=== PATIENT | male | born 1985 | race Hispanic/Latino ===

== ENCOUNTER 2024-12-13 14:02 | Emergency (ER) | payer BC ==
[~2024-12-13] VITALS: Ht 182.9 cm; Wt 88.5 kg
[2024-12-13 15:07] LABS: BASOPHILS # (AUTO) 0.05 K/uL (0.00-0.20); BASOPHILS % (AUTO) 0.5 % (0.0-5.0); EOSINOPHILS # (AUTO) 0.07 K/uL (0.00-0.70); EOSINOPHILS % (AUTO) 0.7 % (0.0-8.0); HEMATOCRIT 46.8 % (42-54); IMMATURE GRANULOCYTE ABSOLUTE 0.03 K/uL (0-1); LYMPHOCYTES # (AUTO) 1.3 K/uL (1.0-4.8); LYMPHOCYTES % (AUTO) 12.1 % (21.0-51.0); MEAN CORPUSCULAR HEMOGLOBIN 30.6 pg (27.0-33.0); MEAN CORPUSCULAR HGB CONC 35.3 g/dL (32.0-36.0); MEAN CORPUSCULAR VOLUME 86.7 fL (79-99); MONOCYTES # (AUTO) 0.6 K/uL (0.1-1.0); MONOCYTES % (AUTO) 5.9 % (3.0-13.0); NEUTROPHILS # (AUTO) 8.4 K/uL (1.8-7.7); NEUTROPHILS % (AUTO) 80.5 % (40.0-77.0); PLATELET COUNT (AUTO) 236 K/uL (130-400); RED CELL DISTRIBUTION WIDTH 12.1 % (11.0-15.5); WHITE BLOOD COUNT (AUTO) 10.4 K/uL (4.8-10.8)
[2024-12-13] MEDS: 0.9%NACL 1000ML 1,000 ML IV ONE (15:09)
--- NOTE | 2024-12-13 15:35 | ERN ---
General Chief Complaint: Medical Clearance Stated Complaint: MEDICAL CLEARANCE Time Seen by MD: 14:03 Time Seen by Midlevel: 14:03 Source: patient History of Present Illness Initial Comments Patient is a 39-year-old male being brought in by [facility] for medical clearance. The patient was arrested earlier today. He then reported he was diabetic so they brought him in for medical clearance. Patient was previously taking metformin but has not taking his medication over the last 4-6 months. On arrival with the patient denies any complaints. He specifically denies any chest pain, shortness of breath, nausea, and vomiting. Allergies: Coded Allergies: ibuprofen (Unverified Allergy, Unknown, 12/13/24) Past Medical History Past Medical History: Diabetes-Type II Past Surgical History: Other Surgical History Other: R FOOT ROS Dictation CONSTITUTIONAL: Negative except for HPI HEAD/FACE: Negative except for HPI EENT: Negative except for HPI RESPIRATORY: Negative except for HPI GASTROINTESTINAL/ABDOMINAL: Negative except for HPI GENITOURINARY: Negative except for HPI MUSCULOSKELETAL: Negative except for HPI INTEGUMENTARY: Negative except for HPI NEUROLOGICAL/PSYCH: Negative except for HPI HEMATOLOGIC/LYMPHATIC: Negative except for HPI All Systems Negative, Except as noted above. 13 point review of systems assessed and all negative except for above. Physical Exam Physical Exam Dictation Vital Signs reviewed General Appearance: Alert, oriented x 3, no acute distress, well developed, nourished. Head and Face: non-traumatic. Eyes: PERRL, pink conjunctivas, eyelid no trauma, anterior chamber with arcus senilis. Ears: Pinnas intact and no signs of trauma or erythema ear canals clear and no discharge TM no erythema Nose: No discharge, no bleeding. Oropharynx: Mouth normal, tongue pink, pharynx clear,no erythema, tonsils no exudates, no abscesses noted, mucous membrane moist Neck: Supple, non-tender, no thyromegaly, no masses, no JVD, no bruits Breast:Deferred Chest:No tenderness, no crepitus, no paradoxical movement, no retractions Lungs:Clear, well-ventilated, symmetric, no rales, no wheezing, no rhonchi, no stridor, good breath sounds bilaterally Heart: Regular rate, regular rhythm, no murmur, no gallops Vascular: no peripheral edema, Abdomen: Soft, positive bowel sounds, nondistended, no guarding, nontender, no rebound, no masses no hepatomegaly, no splenomegaly, no Friedman's sign, no hernias. Rectal: Deferred Genital: Deferred Neurological: Normal speech, motor function intact, sensory function intact Musculoskeletal: Neck nontender, full range of motion, back nontender, full range of motion, Extremities: nontender, full range of motion Skin: Color pink, dry, no turgor, no rash, no lacerations, no abrasions, no contusions. Lymphatic: Deferred Results Laboratory and Microbiology Lab and Micro Result Laboratory Tests Test 12/13/24 14:58 White Blood Count 10.4 K/uL (4.8-10.8) Red Blood Count 5.40 MIL/uL (4.50-6.20) Hemoglobin 16.5 g/dL (14.0-18.0) Hematocrit 46.8 % (42-54) Mean Corpuscular Volume 86.7 fL (79-99) Mean Corpuscular Hemoglobin 30.6 pg (27.0-33.0) Mean Corpuscular Hemoglobin Concent 35.3 g/dL (32.0-36.0) Red Cell Distribution Width 12.1 % (11.0-15.5) Platelet Count 236 K/uL (130-400) Mean Platelet Volume 10.8 fL (7.5-10.5) H Immature Granulocyte % (Auto) 0.3 % (0-1) Neutrophils (%) (Auto) 80.5 % (40.0-77.0) H Lymphocytes (%) (Auto) 12.1 % (21.0-51.0) L Monocytes (%) (Auto) 5.9 % (3.0-13.0) Eosinophils (%) (Auto) 0.7 % (0.0-8.0) Basophils (%) (Auto) 0.5 % (0.0-5.0) Neutrophils # (Auto) 8.4 K/uL (1.8-7.7) H Lymphocytes # (Auto) 1.3 K/uL (1.0-4.8) Monocytes # (Auto) 0.6 K/uL (0.1-1.0) Eosinophils # (Auto) 0.07 K/uL (0.00-0.70) Basophils # (Auto) 0.05 K/uL (0.00-0.20) Absolute Immature Granulocyte (auto 0.03 K/uL (0-1) Nucleated Red Blood Cells 0.0 % (0.0-0.19) Sodium Level 136 mmol/L (136-145) Potassium Level 4.0 mmol/L (3.5-5.1) Chloride Level 100 mmol/L (101-111) L Carbon Dioxide Level 32 mmol/L (21-32) Blood Urea Nitrogen 8 mg/dL (7-18) Creatinine 1.0 mg/dL (0.5-1.3) Glomerular Filtration Rate Calc 98 mL/min (>90) Random Glucose 299 mg/dL (70-105) H Whole Blood Ketones Quantitative 0.3 mmol/L (0.0-0.6) Total Calcium 9.2 mg/dL (8.5-10.1) Labs Reviewed?: Yes MDM MDM: 39-year-old male with a past medical history of type 2 diabetes not currently on medication presenting to the ER for medical clearance. Patient reported he was diabetic so they brought him in for clearance. Patient was no complaints. Physical examination is unremarkable. Basic labs obtained including ketones to evaluate for DKA however a CBC and chemistries are stable. His sugars elevated to 99 he was given 1 L of IV fluids. His gap is normal his ketones are negative. The patient was not in DKA and is stable for discharge at this time. Differential diagnosis: DKA, uncontrolled diabetes with hyperglycemia, dehydration, electrolyte abnormality, medical clearance There are no social concerns with this patient. Prescription drug management Prescriptions will include: None Medical management and examination interpretation discussions were had by me with other qualified healthcare professionals as indicated for the patient's care. ED Course Orders Procedure Category Date Status Time Cbc With Differential LAB 12/13/24 Complete 14:17 Basic Metabolic Panel LAB 12/13/24 Complete 14:17 0.9%Nacl 1000ml (Ns PHA 12/13/24 Complete 1000ml) 14:30 Ketone Blood LAB 12/13/24 Complete Quantitative 14:17 Current Medications Medications (Trade) Dose Ordered Sig/Crystal Route PRN Reason Start Time Stop Time Status Last Admin Dose Admin Sodium Chloride 1,000 ml @ 0 mls/hr ONCE ONCE IV 12/13/24 14:30 12/13/24 14:31 DC 12/13/24 15:09 Vital Signs Date Time Temp Pulse Resp B/P (MAP) Pulse Ox O2 Delivery O2 Flow Rate FiO2 12/13/24 14:12 99.3 118 16 173/127 98 Room Air 0 DX & DISP Disposition: Discharge Departure Impression: Primary Impression: Medical clearance for incarceration Additional Impression: Uncontrolled diabetes mellitus with hyperglycemia Condition: Stable Referrals: SELF,REFERRAL (PCP) Time of Disposition: 15:54 I have reviewed the case, and I agree with, Diagnosis and Plan I performed the substantive portion of the visit. I have reviewed and personally made and approve the management plan that is documented in the note by myself or the TOMASA. I acknowledge for responsibility for the patient's manage ment plan. SMILEY VILLEGAS Dec 13, 2024 15:35
[2024-12-13 15:52] VITALS: BP 160/91; PULSE 95; RESP 18; TEMP 98.9; O2SAT 98
== END 2024-12-13 16:14 | disposition home or self-care (01) ==
LOC: EDH 14:02
DX: E11.65 Type 2 diabetes mellitus with hyperglycemia (principal); Z02.89 Encounter for other administrative examinations; Z88.6 Allergy status to analgesic agent; Z98.890 Other specified postprocedural states
CPT/HCPCS: 99283; 96360; 80048; 85025; 82010; 36415; J7030